=== PATIENT | female | born 1965 | race Hispanic/Latino ===

== ENCOUNTER 2019-04-15 15:00 | Inpatient (IN) | payer OTHER ==
[~2019-04-15] VITALS: Ht 149.9 cm; Wt 61.3 kg
[2019-04-15 16:43] VITALS: BP 137/73
[2019-04-15 16:47] LABS: BASOPHILS % (AUTO) 1.1 % (0.0-5.0); EOSINOPHILS % (AUTO) 1.6 % (0.0-8.0); HEMATOCRIT 38.8 % (36-48); LYMPHOCYTES % (AUTO) 45.4 % (21.0-51.0); MEAN CORPUSCULAR HEMOGLOBIN 28.9 pg (27.0-33.0); MEAN CORPUSCULAR VOLUME 87.6 fL (79-99); MONOCYTES % (AUTO) 5.6 % (3.0-13.0); NEUTROPHILS % (AUTO) 46.1 % (40.0-77.0); PLATELET COUNT (AUTO) 378 K/uL (130-400); RED BLOOD CELL COUNT(AUTO) 4.43 MIL/uL (4.00-5.50); RED CELL DISTRIBUTION WIDTH 13.5 % (11.0-15.5); WHITE BLOOD COUNT (AUTO) 6.4 K/uL (4.8-10.8)
[2019-04-15 16:49] LABS: APPEARANCE,URINE Clear (CLEAR); BILIRUBIN,URINE Negative (NEGATIVE); COLOR,URINE Yellow (YELLOW); GLUCOSE, URINE (UA) Negative (NEGATIVE); KETONES,URINE Negative (NEGATIVE); LEUKOCYTE ESTERASE ,URINE Negative (NEGATIVE); NITRATE,URINE Negative (NEGATIVE); OCCULT BLOOD,URINE Small (NEGATIVE); PH,URINE 6.5 (5.0-8.0); PROTEIN,URINE Negative (NEGATIVE); UROBILINOGEN,URINE 0.2 mg/dL (0.2-1.0)
[2019-04-15 16:58] LABS: BACTERIA,URINE Few /HPF (None Seen); MUCUS,URINE Few LPF (None Seen); SQUAMOUS EPITHELIAL CELL,UR 0-2 /HPF (0-2)
[2019-04-15 17:01] LABS: PARTIAL THROMBOPLASTIN TIME 28.5 SEC (26.3-35.5); PROTHROMBIN TIME 10.5 SEC (9.6-11.6)
[2019-04-15 17:02] LABS: CREATININE 0.9 mg/dL (0.5-1.5); POTASSIUM 4.7 mmol/L (3.5-5.1)
[2019-04-15] MEDS ORDERED: LISI10TA7 PO (17:09)
[2019-04-17] VITALS (20 sets, daily range): BP systolic 102–152; BP diastolic 49–79
[2019-04-17] MEDS: CEFAZOLIN SODIUM 1 GM VIAL IVP SCH ×2 (09:00→10:59)
[2019-04-17] MEDS ORDERED: LACTATED RINGERS 1000ML 1,000 ML IV ONE (09:33)
[2019-04-17] MEDS ORDERED: LIDOCAINE PF 2% 5ML ABBOJECT IVP ONE (10:10)
[2019-04-17] MEDS ORDERED: PROPOFOL 10 MG/ML 20ML VIAL IV ONE (10:11)
[2019-04-17] MEDS ORDERED: MIDAZOLAM HCL 1 MG/ML 2ML VIAL IVPB ONE (10:11)
[2019-04-17] MEDS ORDERED: ONDANSETRON HCL 4 MG/2 ML VIAL IVP ONE (10:12)
[2019-04-17] MEDS ORDERED: ROCURONIUM 10MG/1ML SYR 10 MG/ML ML IV ONE ×2 (10:12→12:15)
[2019-04-17] MEDS ORDERED: FENTANYL CITRATE PF 50 MCG/1 ML 5ML AMP IV ONE (10:12)
[2019-04-17] MEDS ORDERED: DEXMEDETOMIDINE HCL 200 MCG in SODIUM CHLORIDE 0.9% 50 ML IV SCH (11:30)
[2019-04-17] MEDS ORDERED: GLYCOPYRROLATE 1 MG/5 ML SYRINGE IV ONE (11:54)
[2019-04-17] MEDS ORDERED: NEOSTIGMINE 5MG/5ML SYR IV ONE (13:16)
[2019-04-17] MEDS ORDERED: EPHEDRINE SULFATE 50 MG/ML AMPULE IM ONE (13:30)
[2019-04-17 14:53] LABS: BASOPHILS % (AUTO) 0.3 % (0.0-5.0); EOSINOPHILS % (AUTO) 1.7 % (0.0-8.0); HEMATOCRIT 40.7 % (36-48); LYMPHOCYTES % (AUTO) 9.7 % (21.0-51.0); MEAN CORPUSCULAR HGB CONC 33.4 g/dL (32.0-36.0); MEAN CORPUSCULAR VOLUME 86.8 fL (79-99); MONOCYTES % (AUTO) 1.7 % (3.0-13.0); NEUTROPHILS % (AUTO) 86.2 % (40.0-77.0); PLATELET COUNT (AUTO) 352 K/uL (130-400); RED BLOOD CELL COUNT(AUTO) 4.69 MIL/uL (4.00-5.50); RED CELL DISTRIBUTION WIDTH 13.5 % (11.0-15.5); WHITE BLOOD COUNT (AUTO) 13.8 K/uL (4.8-10.8)
[2019-04-17 15:01] LABS: POTASSIUM 3.6 mmol/L (3.5-5.1)
--- NOTE | 2019-04-17 15:30 | NUR ---
RECEIVED PATIENT POST OP. PATIENT [id number]. DROWSY, DRESSING TO ABDOMEN AND BACK DRY AND INTACT.
[2019-04-17] MEDS ORDERED: ONDANSETRON HCL 4 MG/2 ML VIAL IVP PRN (15:45)
[2019-04-17] MEDS ORDERED: HYDROMORPHONE 1 MG/1 ML AMP IVP PRN (15:45)
[2019-04-17] MEDS: HYDROCODONE/ACETAMINOPHEN 7.5/325 MG TAB PO PRN (16:52)
[2019-04-17] MEDS: LACTATED RINGERS 1000ML 1,000 ML IV SCH (17:03)
[2019-04-17] MEDS ORDERED: CEFAZOLIN SODIUM 1 GM VIAL IVP SCH (19:00)
[2019-04-17] MEDS: LISINOPRIL 10 MG TABLET PO SCH (20:39)
[2019-04-18 00:09] VITALS: BP 119/61
[2019-04-18] MEDS: HYDROCODONE/ACETAMINOPHEN 7.5/325 MG TAB PO PRN ×4 (00:19→22:09)
[2019-04-18 04:50] VITALS: BP 117/70
[2019-04-18 05:00] LABS: BASOPHILS % (AUTO) 0.2 % (0.0-5.0); HEMATOCRIT 35.8 % (36-48); LYMPHOCYTES % (AUTO) 13.8 % (21.0-51.0); MEAN CORPUSCULAR HEMOGLOBIN 28.8 pg (27.0-33.0); MEAN CORPUSCULAR HGB CONC 33.5 g/dL (32.0-36.0); MEAN CORPUSCULAR VOLUME 85.9 fL (79-99); MONOCYTES % (AUTO) 5.9 % (3.0-13.0); NEUTROPHILS % (AUTO) 79.8 % (40.0-77.0); PLATELET COUNT (AUTO) 336 K/uL (130-400); RED BLOOD CELL COUNT(AUTO) 4.17 MIL/uL (4.00-5.50); RED CELL DISTRIBUTION WIDTH 13.4 % (11.0-15.5); WHITE BLOOD COUNT (AUTO) 12.2 K/uL (4.8-10.8)
[2019-04-18] MEDS: LACTATED RINGERS 1000ML 1,000 ML IV SCH ×2 (05:05→22:09)
[2019-04-18 05:29] LABS: CREATININE 1.3 mg/dL (0.5-1.5); POTASSIUM 4.1 mmol/L (3.5-5.1)
[2019-04-18 07:30] VITALS: BP 117/65
[2019-04-18] MEDS: PANTOPRAZOLE SODIUM 40 MG TABLET.DR PO SCH (10:04)
[2019-04-18 11:00] VITALS: BP 136/80
[2019-04-18 16:00] VITALS: BP 138/78
--- NOTE | 2019-04-18 17:41 | NUR ---
DC PLAN MEET WITH PATIENT AND FAMILY IN ROOM. PER PATIENT, IS INDEPENDENT WITH ADLS, LIVES WITH HER CHILDREN )2 ADULTS +1 MINOR) DENIES USE OF PROVIDER OR HOME HEALTH SERVICES, NO DME IN USE AND FEELS SAFE TO RETURN HOME ONCE READY. Addendum: 04/18/19 at 1743 by DENNIS GAUTHIER RN CM Amended: Links added.
[2019-04-18] MEDS: LISINOPRIL 10 MG TABLET PO SCH (20:19)
[2019-04-18 21:23] VITALS: BP 142/73
[2019-04-19 01:00] VITALS: BP 105/64
[2019-04-19 04:33] VITALS: BP 121/69
[2019-04-19 07:30] VITALS: BP 138/82
[2019-04-19] MEDS: PANTOPRAZOLE SODIUM 40 MG TABLET.DR PO SCH (08:31)
[2019-04-19] MEDS: HYDROCODONE/ACETAMINOPHEN 7.5/325 MG TAB PO PRN (08:34)
[2019-04-19 11:00] VITALS: BP 114/75
[2019-04-19] MEDS: TRAMADOL HCL 50 MG TABLET PO PRN ×2 (12:49→21:11)
[2019-04-19 16:00] VITALS: BP 134/76
[2019-04-19] MEDS: LACTATED RINGERS 1000ML 1,000 ML IV SCH ×2 (18:10→21:41)
[2019-04-19] MEDS: LISINOPRIL 10 MG TABLET PO SCH (21:11)
[2019-04-20] VITALS: BP 134/75
[2019-04-20 04:00] VITALS: BP 135/78
[2019-04-20] MEDS: TRAMADOL HCL 50 MG TABLET PO PRN (04:19)
[2019-04-20] MEDS: PANTOPRAZOLE SODIUM 40 MG TABLET.DR PO SCH (06:52)
[2019-04-20 07:30] VITALS: BP 144/80
== END 2019-04-20 09:30 | disposition home or self-care (01) | DRG 658 ==
LOC: EDSTATUS 15:00 → DAHIP 04-17 08:44 → 4DH 04-17 15:35
PROVIDERS: ADMIT Urology; ATTEND Urology
PROC: 0TT14ZZ Resection of Left Kidney, Percutaneous Endoscopic Approach (ICD-10-PCS; principal; 2019-04-17 10:40)
DX: C64.2 Malignant neoplasm of left kidney, except renal pelvis (principal); I10 Essential (primary) hypertension; K66.0 Peritoneal adhesions (postprocedural) (postinfection); Z90.5 Acquired absence of kidney
CPT/HCPCS: 36415; 71045; 80048; 81001; 85025; 85610; 85730; 86850; 86900; 86901; 87088; 93005; A4344; G0378; J0690; J2001; J2250; J2405; J2704; J2710; J3010; J3490; J7030; J7120